=== PATIENT | male | born 1955 | race Caucasian/White ===

== ENCOUNTER → 2017-10-16 | Outpatient (REF) ==
--- NOTE | 2017-10-16 10:14 | DI ---
EXAM: CHEST FRONTAL AND LATERAL VIEWS HISTORY: [facility] annual screening. COMPARISON: 11/14/2016 FINDINGS: Heart size and general mediastinal contour are stable. Appearance of the lungs is stable. No suspicious mediastinal or pulmonary densities. No acute infiltrates or pleural fluid. IMPRESSION: Stable findings since prior study.
== END ==
LOC: RAD 09:48
DX: Z02.89 Encounter for other administrative examinations (principal)